=== PATIENT | female | born 1930 | race Caucasian/White ===

== ENCOUNTER 2016-11-24 08:07 | Day surgery (SDC) | payer MEDICARE, OTHER ==
[~2016-11-24 08:07] MED LIST: BESIFLOXACIN HCL 0.6% OPH SUSP 5 ML BOTTLE OD PRN; CYCLOPENTOLATE 0.2%/PHENYLEPHRINE 1% OPH SOLN 2 ML OD PRN; KETOROLAC TROMETHAMINE 0.45% 4 DROP/0.4 ML DROPERETTE OD PRN; TETRACAINE HCL 0.5% OPH SOLN 0.6 ML DROPERETTE OD PRN; TROPICAMIDE 1% OPH SOLN 3 ML OD PRN
[2016-11-24] MEDS ORDERED: MIDAZOLAM 2 MG/2 ML INJ ONE (09:11)
[2016-11-24] MEDS ORDERED: CHONDR SU A NA/HYALUR INTRAOC KIT (SURGICARE) ONE (09:13)
[2016-11-24] MEDS ORDERED: TOBRAMYCIN SULFATE/DEXAMETH OPH OINTMENT 3.5 GM ONE (09:13)
[2016-11-24] MEDS ORDERED: LIDOCAINE 1% INJ-PF (10 MG/ML) 30 ML SDV ONE (09:13)
[2016-11-24] MEDS ORDERED: EPINEPHRINE INJ/PF 1 MG/1 ML AMPULE ONE (09:13)
== END 2016-11-24 10:39 | disposition home or self-care (01) ==
LOC: SC 08:07
PROVIDERS: ATTEND Ophthalmology
PROC: 08RJ3JZ Replacement of Right Lens with Synthetic Substitute, Percutaneous Approach (ICD-10-PCS; principal; 2016-11-24 09:45)
DX: H25.11 Age-related nuclear cataract, right eye (principal); Z79.82 Long term (current) use of aspirin; Z79.84 Long term (current) use of oral hypoglycemic drugs; Z79.899 Other long term (current) drug therapy; E11.9 Type 2 diabetes mellitus without complications; I10 Essential (primary) hypertension; E78.00 Pure hypercholesterolemia, unspecified
CPT/HCPCS: 66984; 82962; V2632; J2250; J3490 ×3; A9270; J0171; 142

== ENCOUNTER → 2019-08-28 | Outpatient (CLI) | payer BC, MEDICARE ==
--- NOTE | 2019-08-29 12:40 | XCELERA REPORT ---
[address] [address] Lower Extremity Arterial Evaluation Name: TROY PATEL Age: 89 yrs Gender: Female : 1930 Patient Status: Outpatient Patient Location: [facility] Study Date: 08/28/2019 03:10 PM Procedure: A color flow and duplex scan of the lower extremity arteries was performed bilaterally with velocity and waveform anaylsis. 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 Normal velocity and triphasic waveforms noted from the Common Femoral artery to the infrageniculate vessels Ankle Brachial index not obtained. Left Side Arterial Evaluation Arterial wall irregularity, consistent with atherosclerosis noted in larger vessels. Normal velocity and triphasic waveforms noted from the Common Femoral artery to the infrageniculate vessels Ankle Brachial index not obtained. Interpretation Summary No hemodynamically significant lesions in the bilateral lower extremities, on duplex imaging, at rest. : RIGOBERTO DALE > Adriel Flor
== END ==
LOC: SP 14:37
PROVIDERS: ATTEND Family Medicine
DX: I70.211 Atherosclerosis of native arteries of extremities with intermittent claudication, right leg (principal)
CPT/HCPCS: 93925